=== PATIENT | female | born 1950 | race Caucasian/White ===

== ENCOUNTER 2024-05-12 14:22 | Emergency (ER) | payer MEDICARE, OTHER ==
[~2024-05-12] VITALS: Ht 175.3 cm; Wt 65.8 kg
[~2024-05-12 14:22] MED LIST: ACETAMINOPHEN-1 EAC1 PO; ALLERGY RELIEF4 MG PO; ASPIRIN EC325 MG PO; CALCIUM + VITA1 EACH PO; DAILY MULTIPLE1 EACH PO; FISH OIL 1,0001 EAC1 PO; FLEXERIL10 MG PO; FLUTICASONE PRO16 GM NS; GLUCOSAMINE1000 MG PO; LISINOPRIL-HCT1 EAC1 PO; LOVASTATIN40 MG PO; MAGNESIUM OXID400 MG PO; METFORMIN HCL500 MG PO; NEXIUM40 MG PO; OXYCODONE-ACET1 EAC1 PO; VITAMIN C1000 M2 PO
[2024-05-12] MEDS ORDERED: LABETALOL HCL100 MG PO (15:20)
[2024-05-12] MEDS ORDERED: OXYCODONE/APAP 5/325 TAB PO ONE (18:00)
[2024-05-12] MEDS ORDERED: ONDANSETRON 4 MG TAB ODT SL ONE (18:00)
[2024-05-12] MEDS ORDERED: PERCOCET 5-3251 EACH PO (19:20)
[2024-05-12 19:44] VITALS: BP 136/78
[2024-05-12] MEDS ORDERED: OXYCODONE/ACETAMINOPHEN 1 TAB HOME.PACK PO ONE (19:45)
== END 2024-05-12 19:52 | disposition home or self-care (01) ==
LOC: ED 14:22
DX: M25.552 Pain in left hip (principal); M25.551 Pain in right hip; E11.9 Type 2 diabetes mellitus without complications; I10 Essential (primary) hypertension; F03.90 Unspecified dementia, unspecified severity, without behavioral disturbance, psychotic disturbance, mood disturbance, and anxiety; Z88.0 Allergy status to penicillin; Z88.5 Allergy status to narcotic agent; Z88.8 Allergy status to other drugs, medicaments and biological substances; Z79.899 Other long term (current) drug therapy; Z79.84 Long term (current) use of oral hypoglycemic drugs
CPT/HCPCS: 99283; A9270

== ENCOUNTER 2024-10-01 19:13 | Emergency (ER) | payer MEDICARE, OTHER ==
[~2024-10-01] VITALS: Ht 175.3 cm; Wt 75.0 kg
[~2024-10-01 19:13] MED LIST changes: +LABETALOL HCL100 MG PO; +PERCOCET 5-3251 EACH PO
[2024-10-01] MEDS ORDERED: OXYCODON-ACETA1 EAC2 PO (19:30)
[2024-10-01 19:37] LABS: BASOPHILS 0.5 % (0.1-1.2); EOSINOPHILS 0.8 % (0.7-5.8); HEMATOCRIT 36.8 % (34.1-44.9); HEMOGLOBIN 12.2 g/dL (11.2-15.7); LYMPHOCYTES 19.4 % (19.3-51.7); MCHC 33.2 g/dL (32.2-35.5); MCV 87.6 fL (79.4-94.8); MONOCYTES 9.6 % (4.7-12.5); NEUTROPHILS 69.4 % (34.0-71.1); PLATELET COUNT 270 K/uL (182-369)
[2024-10-01 19:49] LABS: ALBUMIN 3.9 g/dL (3.4-5.0); ALBUMIN/GLOBULIN RATIO 1.15 (1.1-2.4); ANION GAP 10.5 (7-21); BILIRUBIN, TOTAL 0.5 mg/dL (0.2-1.0); BUN/CREATININE RATIO 35.16 (6.0-28.6); CALCIUM 9.3 mg/dL (8.5-10.1); CREATININE, SERUM 0.91 mg/dL (0.55-1.02); MAGNESIUM 1.9 mg/dL (1.8-2.4); POTASSIUM 3.5 mmol/L (3.5-5.1); PROTEIN, TOTAL 7.3 g/dL (6.4-8.2)
[2024-10-01 20:21] LABS: BILIRUBIN, URINE NEGATIVE (negative); BLOOD/HGB, URINE TRACE-I (Negative); KETONE, URINE NEGATIVE (Negative); LEUK ESTERASE, URINE NEGATIVE (negative); NITRITE, URINE NEGATIVE (negative); PH, URINE 5.5 (5-7)
[2024-10-01 20:35] LABS: BACTERIA, URINE RARE /hpf (negative); CASTS, URINE NONE SEEN \\lpf; CRYSTALS, URINE NONE SEEN (0-1+); EPITHELIAL CELLS, URINE NONE SEEN /lpf (0-1+)
[2024-10-01 20:36] LABS: COLLECTION TYPE, URINE CLEAN CATCH; REFLEX CULTURE, URINE No (No)
[2024-10-01 22:59] VITALS: BP 190/83
== END 2024-10-01 23:01 | disposition home or self-care (01) ==
LOC: ED 19:13
PROVIDERS: Family Medicine
DX: F03.90 Unspecified dementia, unspecified severity, without behavioral disturbance, psychotic disturbance, mood disturbance, and anxiety (principal); R26.9 Unspecified abnormalities of gait and mobility; E11.9 Type 2 diabetes mellitus without complications; I10 Essential (primary) hypertension; Z88.0 Allergy status to penicillin; Z88.8 Allergy status to other drugs, medicaments and biological substances; Z91.041 Radiographic dye allergy status; Z79.899 Other long term (current) drug therapy
CPT/HCPCS: 36415; 70450; 80053; 81001; 83735; 84484; 85025; 99285-25